=== PATIENT | female | born 1970 | race Caucasian/White ===

== ENCOUNTER 2016-10-18 17:59 | Emergency (ER) | payer BC, OTHER ==
[2016-10-18 18:05] VITALS: BP 145/78
[2016-10-18] MEDS ORDERED: traMADol TAB* 50 MG PO ONE ×3 (20:51→21:51)
[2016-10-18] MEDS ORDERED: Silver Sulfadiazine 1%* 20 GM TOPICAL ONE (20:51)
--- NOTE | 2016-10-18 21:12 | ED ---
Skin Complaint - HPI Summary HPI Summary: Patient presents to ED with CC of sunburn to the bilateral lower extremities x4 days. She notes to blistering x 2 days ago which has become worse. She has never burned the skin before. She has tried witch saman, and lidocaine OTC cream without effect. Denies other symptoms. Denies SOB, chest pain, pressure or difficultly swallowing. - History of Current Complaint Chief Complaint: EDBurnSmokeInh Time Seen by Provider: 10/18/16 19:28 Stated Complaint: SUN BURN ON LEG BLISTERS Hx Obtained From: Patient Onset/Duration: Started Days Ago Skin Exposure Onset/Duration: Days Ago Timing: Constant Onset Severity: Severe Current Severity: Severe Pain Intensity: 10 Pain Scale Used: 0-10 Numeric Skin Location: Leg - bilateral Character: Pain, Redness Aggravating Symptom(s): Touch Alleviating Symptom(s): Cold Compresses Associated Signs & Symptoms: Rash, Joint Swelling Related History: Possible Reaction to: Environmental Exposure - Allergy/Home Medications Allergies/Adverse Reactions: Allergies Allergy/AdvReac Type Severity Reaction Status Date / Time Quetiapine [From Seroquel] Allergy Nausea And Verified 01/14/14 12:16 Vomiting Venlafaxine [From Effexor] Allergy GI Upset Verified 01/14/14 12:16 PMH/Surg Hx/FS Hx/Imm Hx Previously Healthy: Yes Endocrine/Hematology History: Denies: Hx Anticoagulant Therapy, Hx Diabetes, Hx Thyroid Disease Cardiovascular History: Denies: Hx Hypertension, Hx Pacemaker/ICD Respiratory History: Denies: Hx Asthma, Hx Chronic Obstructive Pulmonary Disease (COPD) GI History: Denies: Hx Ulcer History: Denies: Hx Renal Disease Neurological History: Denies: Hx Dementia, Hx Seizures Psychiatric History: Denies: Hx Substance Abuse - Surgical History Surgery Procedure, Year, and Place: hysterectomy. 1985,1991. Endometriosis 1986 - Immunization History Hx Pertussis Vaccination: No Immunizations Up to Date: Unable to Obtain/Confirm Infectious Disease History: No Infectious Disease History: Denies: Hx Clostridium Difficile, Hx Hepatitis, Hx Human Immunodeficiency Virus (HIV), Hx Shingles, Hx Tuberculosis, Traveled Outside the [place] in Last 30 Days - Social History Occupation: Employed Full-time Lives: With Family Alcohol Use: Occasionally Hx Substance Use: No Substance Use Type: Reports: None Hx Tobacco Use: Yes Smoking Status (MU): Light Every Day Tobacco Smoker Amount Used/How Often: little over 1/2 ppd Review of Systems Constitutional: Negative Eyes: Negative Cardiovascular: Negative Respiratory: Negative Positive: no symptoms reported, see HPI Positive: Myalgia Positive: Rash Neurological: Negative Psychological: Normal All Other Systems Reviewed And Are Negative: Yes Physical Exam Triage Information Reviewed: Yes Vital Signs On Initial Exam: Initial Vitals Temp Pulse Resp BP Pulse Ox 96.9 F 87 17 145/78 98 10/18/16 18:00 10/18/16 18:00 10/18/16 18:00 10/18/16 18:00 10/18/16 18:00 Vital Signs Reviewed: Yes Appearance: Positive: Well-Appearing, Well-Nourished Skin: Positive: Warm, Skin Color Reflects Adequate Perfusion, Other - erythematous area over anterior bilateral lower extremities with swelling and small diffuse blisters, not circumferential Head/Face: Positive: Normal Head/Face Inspection Eyes: Positive: EOMI, GO, Conjunctiva Clear Neck: Positive: Supple, No Lymphadenopathy Respiratory/Lung Sounds: Positive: Clear to Auscultation, Breath Sounds Present Cardiovascular: Positive: Normal, RRR, Pulses are Symmetrical in both Upper and Lower Extremities Musculoskeletal: Positive: Normal, Strength/ROM Intact Neurological: Positive: Sensory/Motor Intact, Alert, Oriented to Person Place, Time, Speech Normal Psychiatric: Positive: Normal Diagnostics - Vital Signs Vital Signs Temp Pulse Resp BP Pulse Ox 10/18/16 18:03 96.9 F 87 17 145/78 98 10/18/16 18:00 96.9 F 87 17 145/78 98 - Laboratory Lab Statement: Any lab studies that have been ordered have been reviewed, and results considered in the medical decision making process. Course/Dx - Course Course Of Treatment: Patient presents 4 days s/p sunburn with erythematous area over anterior bilateral lower extremities with swelling and small diffuse blisters, not circumferential. Silvadene and prednisone given. pain management ordered. - Differential Diagnoses - Skin Complaint Differential Diagnoses: Angioedema, Heat Exhaustion, Other - burn - Diagnoses Provider Diagnoses: Sunburn, blistering Discharge - Discharge Plan Condition: Stable Disposition: HOME Prescriptions: predniSONE TAB* [Deltasone TAB*] 50 mg PO DAILY #5 tab MDD 1 traMADol TAB* [Ultram*] 25 mg PO Q8H PRN #6 tab MDD 3 PRN Reason: Pain traMADol TAB* [Ultram*] 25 mg PO Q8H PRN #12 tab MDD 3 PRN Reason: Pain Patient Education Materials: Second Degree Burn (ED), Cold Compress or Soak (ED ) Referrals: Anil Wright [Primary Care Provider] - Additional Instructions: Prednisone 50mg once daily in the morning for 5 days Aloe vera twice daily Silvadene twice daily on opposite schedule of aloe vera Pain medication as needed Cold compresses
[2016-10-18] MEDS ORDERED: predniSONE TAB* 10 MG PO ONE (22:02)
[2016-10-18] MEDS ORDERED: predniSONE TAB* 20 MG ONE (22:03)
[2016-10-18] MEDS ORDERED: predniSONE TAB* 20 MG PO ONE ×2 (22:15)
[2016-10-19] MEDS ORDERED: predniSONE TAB* 50 MG PO SCH (09:00)
[2016-10-19] MEDS ORDERED: predniSONE TAB* 50 MG PO ONE (21:51)
== END 2016-10-18 22:20 | disposition home or self-care (01) ==
LOC: ED 17:59
DX: L55.1 Sunburn of second degree (principal); F17.210 Nicotine dependence, cigarettes, uncomplicated
CPT/HCPCS: 99282; A9270-GY; J7512